=== PATIENT | male | born 1980 | race Two or more races ===

== ENCOUNTER 2016-04-23 19:48 | Emergency (ER) | payer MEDICARE, MEDICAID ==
--- NOTE | 2016-04-23 20:10 | ER Document Report ---
ED Medical Screen (RME) - General Stated Complaint: ABDOMINAL PAIN Time seen by provider: 20:07 Mode of Arrival: Ambulatory Information source: Patient Notes: 35-year-old male presents to ED for abdominal pain and lower abdomen for 3 days getting worse over the last couple hours. Denies nausea vomiting or diarrhea. Some pain with urination and some pressure with urination. I have greeted and performed a rapid initial assessment of this patient. A comprehensive ED assessment and evaluation of the patient, analysis of test results and completion of medical decision making process will be conducted by an additional ED providers. - HPI Onset: Other Onset/Duration: Gradual - 3 days Physical Exam - Vital signs Vitals: Temp Pulse BP Pulse Ox 98.0 F 75 142/81 H 100 04/23/16 19:59 04/23/16 19:59 04/23/16 19:59 04/23/16 19:59 Course - Vital Signs Vital signs: Temp Pulse Resp BP Pulse Ox 98.0 F 75 18 142/81 H 100 04/23/16 19:59 04/23/16 19:59 04/23/16 20:01 04/23/16 19:59 04/23/16 19:59
[2016-04-23 20:34] LABS: ABSOLUTE BASOPHILS # (AUTO) 0.1 10^3/uL (0.0-0.2); ABSOLUTE EOSINOPHILS # (AUTO) 0.2 10^3/uL (0.0-0.6); ABSOLUTE LYMPHOCYTES (AUTO) 2.1 10^3/uL (0.5-4.7); ABSOLUTE MONOCYTES (AUTO) 0.9 10^3/uL (0.1-1.4); ABSOLUTE NEUT (AUTO) 4.9 10^3/uL (1.7-8.2); BASOPHILS % (AUTO) 0.6 % (0-2); EOSINOPHILS % (AUTO) 2.1 % (0-6); HEMATOCRIT 41.8 % (37.9-51.0); HEMOGLOBIN 13.4 g/dL (13.5-17.0); HGB HCT DIFFERENCE -1.6; LYMPHOCYTES % (AUTO) 26.3 % (13-45); MEAN CORPUSCULAR HGB CONC 32.1 g/dL (32.0-36.0); MEAN CORPUSCULAR VOLUME 90 fl (80-97); MONOCYTES % (AUTO) 10.8 % (3-13); RED BLOOD COUNT 4.63 10^6/uL (4.35-5.55); RED CELL DISTRIBUTION WIDTH 12.9 % (11.5-14.0); SEGMENTED NEUTROPHILS % (AUTO) 60.2 % (42-78); WHITE BLOOD COUNT 8.2 10^3/uL (4.0-10.5)
[2016-04-23 20:45] LABS: APPEARANCE,URINE CLEAR; BILIRUBIN,URINE NEGATIVE (NEGATIVE); GLUCOSE, URINE NEGATIVE (NEGATIVE); KETONES,URINE NEGATIVE (NEGATIVE); LEUKOCYTE ESTERASE,URINE NEGATIVE (NEGATIVE); NITRITE,URINE NEGATIVE (NEGATIVE); PROTEIN,URINE NEGATIVE (NEGATIVE); URINE SPECIFIC GRAVITY 1.017; UROBILINOGEN,URINE NEGATIVE mg/dL (<2.0)
[2016-04-23 20:56] LABS: ALANINE AMINOTRANSFERASE 68 U/L (21-72); ALBUMIN 4.9 g/dL (3.5-5.0); ALKALINE PHOSPHATASE 53 U/L (38-126); ANION GAP 14 (5-19); ASPARTATE AMINO TRANSFERASE 32 U/L (17-59); BILIRUBIN,TOTAL 0.6 mg/dL (0.2-1.3); BLOOD UREA NITROGEN 13 mg/dL (7-20); CALCIUM 9.6 mg/dL (8.4-10.2); CARBON DIOXIDE 28 mmol/L (22-30); CHLORIDE 103 mmol/L (98-107); CREATININE RESULT 1.07 mg/dL (0.52-1.25); GLUCOSE 89 mg/dL (75-110); LIPASE 155.3 U/L (23-300); POTASSIUM 4.1 mmol/L (3.6-5.0); SODIUM 144.5 mmol/L (137-145)
[2016-04-23] MEDS ORDERED: DOCUSATE SODIUM 100 MG CAPSULE PO ONE (21:53)
[2016-04-23] MEDS ORDERED: DICYCLOMINE HCL 20 MG TABLET PO ONE (21:53)
--- NOTE | 2016-04-23 21:54 | ER Document Report ---
ED GI/ - General Chief Complaint: Abdominal Pain Stated Complaint: ABDOMINAL PAIN Mode of Arrival: Ambulatory Information source: Patient Notes: Patient is a 35-year-old male who presents to the ER today for abdominal pain in the left lower abdomen 3 days. Patient states that it comes and goes. He denies any fever, chills, vomiting, diarrhea, nausea. He states that his last bowel movement was today but it was very "hard and small." He states that he usually goes daily. He denies any history of abdominal surgeries. He denies any history of diverticulitis. - Related Data Allergies/Adverse Reactions: No Known Allergies Allergy (Unverified 04/23/16 20:09) Past Medical History - General Information source: Patient - Social History Smoking Status: Never Smoker Frequency of alcohol use: None Drug Abuse: None Family History: Reviewed & Not Pertinent Renal/ Medical History: Denies: Hx Peritoneal Dialysis Review of Systems - Review of Systems Constitutional: No symptoms reported EENT: No symptoms reported Cardiovascular: No symptoms reported Respiratory: No symptoms reported Gastrointestinal: See HPI Genitourinary: No symptoms reported Male Genitourinary: No symptoms reported Musculoskeletal: No symptoms reported Skin: No symptoms reported Hematologic/Lymphatic: No symptoms reported Neurological/Psychological: No symptoms reported Physical Exam - Vital signs Vitals: Temp Pulse BP Pulse Ox 98.0 F 75 142/81 H 100 04/23/16 19:59 04/23/16 19:59 04/23/16 19:59 04/23/16 19:59 - Notes Notes: PHYSICAL EXAMINATION: GENERAL: Well-appearing and in no acute distress. HEAD: Atraumatic, normocephalic. EYES: Pupils equal round and reactive to light, extraocular movements intact, sclera anicteric, conjunctiva are normal. NECK: Normal range of motion, supple without lymphadenopathy LUNGS: CTAB and equal. No wheezes rales or rhonchi. HEART: Regular rate and rhythm without murmurs ABDOMEN: Soft, no tenderness. No guarding, no rebound, no hernia appreciated BACK: no vertebral tenderness, normal ROM GI/: no CVA tenderness EXTREMITIES: Normal range of motion, no pitting edema. No cyanosis. NEUROLOGICAL: Cranial nerves grossly intact. Normal sensory/motor exams. PSYCH: Normal mood, normal affect. SKIN: Warm, Dry, normal turgor, no rashes or lesions noted Course - Re-evaluation Re-evalutation: 04/23/16 23:41 Patient has no tenderness and KUB x-ray was negative for any acute pathology. Patient clinically sounds constipated. I will provide him something for constipation have a follow-up with primary care provider outpatient. He is afebrile here with normal vital signs and a normal white blood cell count. The rest of his lab work is unremarkable as well. 04/23/16 23:42 - Vital Signs Vital signs: Temp Pulse Resp BP Pulse Ox 98.0 F 75 18 147/78 H 99 04/23/16 23:49 04/23/16 23:49 04/23/16 23:49 04/23/16 23:49 04/23/16 23:49 - Laboratory Result Diagrams: 04/23/16 20:10 04/23/16 20:10 Laboratory results interpreted by me: 04/23/16 04/23/16 20:10 20:10 Hgb 13.4 L Urine Ascorbic Acid 40 H Discharge - Discharge Clinical Impression: Constipation Qualifiers: Constipation type: unspecified constipation type Qualified Code(s): K59.00 - Constipation, unspecified Abdominal pain Qualifiers: Abdominal location: left lower quadrant Qualified Code(s): R10.32 - Left lower quadrant pain Condition: Stable Disposition: HOME, SELF-CARE Additional Instructions: Drink plenty of fluids. Return immediately for any new or worsening symptoms. Follow up with primary care provider, call tomorrow to make followup appointment. Prescriptions: Sennosides/Docusate 8.6-50 mg [Senna Plus Tablet] 1 tab PO DAILY #15 tab Referrals: EVETTE ROGER [Primary Care Provider] - Follow up as needed
[2016-04-23] MEDS ORDERED: SENNOSIDES/DOCUSATE 8.6-50 MG 1 EACH TABLET PO ONE (23:42)
[2016-04-23 23:53] VITALS: BP 147/78
== END 2016-04-23 23:53 | disposition home or self-care (01) ==
LOC: ER 19:48
DX: K59.00 Constipation, unspecified (principal); R10.32 Left lower quadrant pain
CPT/HCPCS: 99284; 36415; 83690; 85025; 80053; 81001; 74000; A9270 ×3; J3490